=== PATIENT | female | born 1995 | race Caucasian/White ===

== ENCOUNTER 2017-02-11 15:30 | Emergency (ER) | payer OTHER ==
[2017-02-11 15:41] VITALS: BP 121/82
== END 2017-02-11 17:22 | disposition left against medical advice (07) ==
LOC: ED 15:30
DX: Z53.21 Procedure and treatment not carried out due to patient leaving prior to being seen by health care provider (principal)

== ENCOUNTER 2019-12-31 11:06 | Outpatient (CLI) | payer BC, OTHER ==
--- NOTE | 2019-12-31 14:54 | Ultrasound Report ---
Reason: POSITIVE TEST Procedure Date: 12/31/2019 Accession Number: [id number] / [id number] Procedure: US - OB First Trimester CPT Code: Final Report FULL RESULT: PROCEDURE: OB First Trimester INDICATIONS: POSITIVE TEST OUTSIDE/PRIOR DATING DATA: Last menstrual period (LMP): 11/08/2019. LMP-based estimated date of delivery (MANI): 08/14/2020. First dating scan (date and location): 12/31/2019, current exam. Estimated date of delivery (MANI) from first dating scan: 08/17/2019. TECHNIQUE: Real-time scanning was performed of the fetus and maternal pelvic organs, with image documentation. COMPARISON: None available. FINDINGS: Embryo: Vertically oriented uterus contains a gestational sac with a mean sac diameter of 2.84 cm. Gestational sac contains a pole and normal-appearing yolk sac. The pole has a crown-rump length of 1.06 cm which corresponds to a 7 week 1 day gestation. There is detectable cardiac activity and the fetus at a rate of 152 bpm. Measurement variability in dating: +/- 4 weeks by LMP, +/- 7 days by mean sac diameter (use before 6 weeks gestation if crown-rump length not able to be measured), +/- 5 days by crown-rump length (6-12 weeks gestation). Maternal organs: Ovaries appear normal.. No free pelvic fluid. IMPRESSION: 1. Single living intrauterine with a gestational age of 7 weeks, 1 day which corresponds to an estimated due date of 08/17/2019. Reviewed by: Radha Robert MD on 12/31/2019 2:49 PM PDT Approved by: Radha Robert MD on 12/31/2019 2:49 PM PDT Station ID: [id number]
== END 2019-12-31 11:07 | disposition home or self-care (01) ==
LOC: DI 11:06
PROVIDERS: ATTEND Obstetrics & Gynecology
DX: Z34.91 Encounter for supervision of normal pregnancy, unspecified, first trimester (principal)
CPT/HCPCS: 76801